=== PATIENT | male | born 1960 | race Caucasian/White ===

== ENCOUNTER 2022-01-13 08:53 | Inpatient (IN) | payer OTHER ==
[2022-01-13] VITALS (9 sets, daily range): BP systolic 138–163; BP diastolic 79–98
[~2022-01-13] VITALS: Ht 177.8 cm; Wt 103.4 kg
[2022-01-13] MEDS ORDERED: ASPI-1497 PO (09:26)
[2022-01-13 10:23] LABS: CHLORIDE 103 mEq/L (98-107)
[2022-01-13 10:26] LABS: BASOPHILS % 0.6 % (0.0-2.0); HEMOGLOBIN. 13.1 g/dL (14.0-18.0); LYMPHOCYTES % 28.8 % (20.0-50.0); MEAN CORPUSCULAR HEMOGLOBIN 34.4 pg (28.0-32.0); MEAN CORPUSCULAR VOLUME 99.5 fL (80.0-94.0); MEAN PLATELET VOLUME 8.5 fl (7.4-10.4); MONOCYTES % 9.4 % (2.0-8.0); NEUTROPHILS % 58.2 % (40.0-76.0); PLATELET 229 x1000/uL (130-400); RED BLOOD CELL COUNT 3.82 mill/uL (4.7-6.1); RED CELL DISTRIBUTION WIDTH 13.1 % (11.6-14.6)
[2022-01-13] MEDS ORDERED: LIDOCAINE HCL 1% 20ML VIAL (Pyxis) INJ ONE (12:42)
[2022-01-13] MEDS ORDERED: HEPARIN 1000 UNITS/ML 10ML ONE (12:43)
[2022-01-13] MEDS ORDERED: IODIXANOL 320MG/ML 100 ML BOTTLE IV ONE (12:43)
[2022-01-13] MEDS ORDERED: MIDAZOLAM HCL 2 MG/2 ML VIAL ONE (12:52)
[2022-01-13] MEDS ORDERED: FENTANYL CITRATE/PF 50MCG/ML 2ML VIAL ONE (12:53)
[2022-01-13] MEDS ORDERED: CLOPIDOGREL 75MG TABLET ONE (13:37)
[2022-01-13] MEDS ORDERED: HYDRALAZINE 20MG/ML VIAL ONE (13:37)
[2022-01-13] MEDS ORDERED: ASPIRIN 325MG TABLET ONE (13:37)
[2022-01-13] MEDS ORDERED: ACETAMINOPHEN 325MG TABLET PO PRN (13:45)
[2022-01-13] MEDS ORDERED: ATROPINE SULFATE 1MG/10ML SYR IV PRN (13:45)
[2022-01-13] MEDS ORDERED: ACETAMINOPHEN 650MG/20.3ML UDC PO ONE (13:45)
[2022-01-13] MEDS: AMLODIPINE 5MG TABLET PO SCH (20:18)
[2022-01-13] MEDS ORDERED: ATORVASTATIN CALCIUM 40MG TABLET PO SCH (21:00)
[2022-01-14 00:31] VITALS: BP 130/80
[2022-01-14 02:31] VITALS: BP 123/79
[2022-01-14 04:32] VITALS: BP 159/91
[2022-01-14] MEDS ORDERED: INFLUENZA VACCINE 05/PF 0.5 ML SYRINGE IM ONE (05:15)
[2022-01-14 06:03] LABS: BASOPHILS % 0.6 % (0.0-2.0); HEMATOCRIT. 37.4 % (42.0-52.0); HEMOGLOBIN. 12.8 g/dL (14.0-18.0); LYMPHOCYTES % 24.3 % (20.0-50.0); MEAN CORPUSCULAR HEMOGLOBIN 34.4 pg (28.0-32.0); MEAN CORPUSCULAR VOLUME 100.1 fL (80.0-94.0); MEAN PLATELET VOLUME 8.6 fl (7.4-10.4); MONOCYTES % 10.4 % (2.0-8.0); NEUTROPHILS % 61.7 % (40.0-76.0); PLATELET 229 x1000/uL (130-400); RED BLOOD CELL COUNT 3.73 mill/uL (4.7-6.1)
[2022-01-14 07:21] LABS: CHLORIDE 105 mEq/L (98-107)
[2022-01-14 08:00] VITALS: BP 128/76
[2022-01-14] MEDS: AMLODIPINE 5MG TABLET PO SCH (08:17)
[2022-01-14] MEDS ORDERED: CLOPIDOGREL 75MG TABLET PO SCH (09:00)
[2022-01-14] MEDS ORDERED: ASPIRIN 81MG EC TABLET PO SCH (09:00)
[2022-01-14] MEDS ORDERED: LOSARTAN POTASSIUM 50 MG TABLET PO SCH (09:00)
[2022-01-14 11:14] VITALS: BP 139/84
== END 2022-01-14 11:50 | disposition home or self-care (01) | DRG 247 ==
LOC: ER 08:53 → 3WST 11:19
PROVIDERS: ADMIT Internal Medicine; ATTEND Internal Medicine
PROC: 027034Z Dilation of Coronary Artery, One Artery with Drug-eluting Intraluminal Device, Percutaneous Approach (ICD-10-PCS; principal; 2022-01-13)
PROC: 4A023N7 Measurement of Cardiac Sampling and Pressure, Left Heart, Percutaneous Approach (ICD-10-PCS; 2022-01-13)
PROC: B2111ZZ Fluoroscopy of Multiple Coronary Arteries using Low Osmolar Contrast (ICD-10-PCS; 2022-01-13)
DX: I25.10 Atherosclerotic heart disease of native coronary artery without angina pectoris (principal); I10 Essential (primary) hypertension; E78.00 Pure hypercholesterolemia, unspecified; E78.5 Hyperlipidemia, unspecified; Z90.49 Acquired absence of other specified parts of digestive tract; Z79.02 Long term (current) use of antithrombotics/antiplatelets; Z79.82 Long term (current) use of aspirin
CPT/HCPCS: 36415; 71045; 80048; 80053; 83735; 83880; 84484; 85025; 90686; 92928; 93005; 93306; 93458; 99285; C1769; C1874; C1887; C1893; J0360; J1644; J2250; J3010; J3490; Q9967